=== PATIENT | male | born 1975 | race Caucasian/White ===

== ENCOUNTER 2016-12-10 15:58 | Emergency (ER) | payer MEDICAID, OTHER ==
[~2016-12-10] VITALS: Ht 154.9 cm; Wt 52.0 kg
[2016-12-10 16:00] VITALS: Ht 154.9 cm; Wt 52.0 kg
[2016-12-10] MEDS ORDERED: KETOROLAC 30 MG INJ IM STA (16:56)
[2016-12-10] MEDS ORDERED: DIAZEPAM 5 MG TAB PO ONE (17:00)
--- NOTE | 2016-12-10 17:55 | RADRPT ---
PROCEDURE: Lumbar spine series CLINICAL INDICATION: Pain status post fall TECHNIQUE: AP and lateral views COMPARISON: None available FINDINGS: The visualized spine alignment is normal. No acute fractures or traumatic subluxations are present. Preservation of vertebral body heights and disk spaces are noted to Normal mineralization is presen t. The bilateral pedicles and posterior elements are intact and well aligned. The bilateral sacroiliac joints are normal. IMPRESSION: 1. No acute fractures or traumatic subluxations. RPTAT: HDC .Yael Kulkarni MD, Date Time Electronically viewed and signed by .Yael Kulkarni MD, on 12/10/2016 17:54 .C/
[2016-12-10] MEDS ORDERED: NAPR-688 PO (18:18)
[2016-12-10] MEDS ORDERED: CYCL-319 PO (18:18)
--- NOTE | 2016-12-10 18:29 | ERD ---
ER Documentation Chief Complaint Date/Time DATE: 12/10/16 TIME: 18:26 Chief Complaint lower back pain s/p slip/fall HPI This is a 41-year-old male presenting with acute lower back pain status post a fall from a ladder at 6 feet. Patient states that he landed on his back, he states his pain is 4-5 out of 10, nonradiating described as achy and bruised. Patient states that he had no head injury, he denies any neuro deficits. He denies bladder or bowel incontinence. Denies saddle anesthesia ROS All systems reviewed and are negative except as per history of present illness. Medications Home Meds Active Scripts Cyclobenzaprine Hcl* (Cyclobenzaprine Hcl*) 10 Mg Tablet, 10 MG PO Q8 Y for MUSCLE SPASMS, #30 TAB Prov:RUPAL LOREZNO PA-C 12/10/16 Naproxen* (Naproxen*) 500 Mg Tablet, 500 MG PO BID Y for PAIN AND OR ELEVATED TEMP, #30 TAB Prov:RUPAL LORENZO PA-C 12/10/16 Reported Medications [None] No Conflict Check 11/15/10 Allergies Allergies: Coded Allergies: No Known Allergies (Verified Allergy, Mild, 09/05/12) PMhx/Soc History of Surgery: Yes (Hernia repair) Anesthesia Reaction: No Hx Neurological Disorder: No Hx Respiratory Disorders: No Hx Cardiac Disorders: No Hx Psychiatric Problems: No Hx Miscellaneous Medical Probl: No Hx Alcohol Use: No Hx Substance Use: No Hx Tobacco Use: No Smoking Status: Never smoker Physical Exam Vitals Vital Signs Date Time Temp Pulse Resp B/P Pulse Ox O2 Delivery O2 Flow Rate FiO2 12/10/16 16:00 97.8 80 18 163/88 96 Physical Exam GENERAL: WD/WN, in no apparent distress, non-toxic appearing HENT: NC/AT EYES: Conjunctiva normal NECK: Supple PULM: Normal labored breathing CV: Good capillary refill GI: Non-distended, no guarding BACK: no deformities noted, normal spinal curvature, TTP on lumbar region, non- tender on spine midline, bruising is noted in the right lumbar region EXT: No clubbing, cyanosis, or edema NEURO: Moves on all fours, sensation intact, normal gait SKIN: intact PSYCH: Normal mood Results 24 hrs Current Medications Medications (Trade) Dose Ordered Sig/Natalie Route PRN Reason Start Time Stop Time Status Last Admin Dose Admin Ketorolac Tromethamine (Toradol) 30 mg ONCE STAT IM 12/10/16 16:56 12/10/16 16:57 DC 12/10/16 17:42 Diazepam (Valium) 10 mg ONCE ONCE PO 12/10/16 17:00 12/10/16 17:01 DC 12/10/16 17:42 Procedures/MDM This is a 41-year-old male presenting with acute lower back pain status post a fall from a ladder at 6 feet. Likely due to contusion, sprain. There was no evidence of any fracture or traumatic subluxation. Patient has no neuro deficits. No evidence of vertebral fracture, cauda equina syndrome, spinal stenosis due to physical examination. In the ED patient was given Toradol for pain. X-ray of the lumbar region was done did not show any fractures or subluxations. Patient is neurovascularly intact. Prescriptions naproxen and Flexeril was given to patient, discussed to return to the ED if not improving as expected or follow-up with a primary care physician. Patient understood and agreed with this plan. Departure Diagnosis: Primary Impression: Injury of back Additional Impression: Back contusion Condition: Stable Patient Instructions: Back Sprain/Strain, Contusion, Back Additional Instructions: Visite a freed mdico maana para un EXAMEN.Regrese a estas instalaciones si no se mejora alexandre esperbamos o alexandre le dijimos. [place] toda la medicina maylin y alexandre se le indic. La medicina que se le recet puede causarle sueo.NO DEBE MANEJAR NI OPERAR MAQUINARIAS PELIGROSAS mientras esta tomando esta medicina! Regrese a estas instalaciones si no se mejora alexandre esperbamos o alexandre le dijimos. RUPAL LORENZO PA-C December 10, 2016 18:29
[2016-12-10 18:40] VITALS: BP 155/79; PULSE 70; RESP 17; TEMP 98
== END 2016-12-10 18:52 | disposition home or self-care (01) ==
LOC: FTE 15:58
DX: S30.0XXA Contusion of lower back and pelvis, initial encounter (principal); W11.XXXA Fall on and from ladder, initial encounter; Y92.9 Unspecified place or not applicable
CPT/HCPCS: 72100; 96372; J1885; Z7502; Z7610

== ENCOUNTER 2017-03-27 18:21 | Emergency (ER) | payer OTHER ==
[~2017-03-27] VITALS: Ht 154.9 cm; Wt 50.5 kg
[~2017-03-27 18:21] MED LIST: CYCL-319 PO; NAPR-688 PO
[2017-03-27 18:50] VITALS: Ht 154.9 cm; Wt 50.5 kg
[2017-03-27] MEDS ORDERED: KETOROLAC 30 MG INJ IM STA (20:58)
--- NOTE | 2017-03-27 22:10 | RADRPT ---
PROCEDURE: CT Lumbar Spine. CLINICAL INDICATION: Back pain, post fall TECHNIQUE: Continuous axial CT images were obtained. Sagittal and coronal reformations were creat ed from the raw axial data. The images were reviewed on a PACS workstation. The calculated radiatio n dose measures 201 mGy centimeters. The CTDI measures 7 mGy One or more of the following dose reduction techniques were used: Automated exposure control. Adjustment of the mA and/or kV according to patient size. Use of iterative reconstruction technique. COMPARISON: None available FINDINGS: There is normal alignment of the lumbar spine. There is no evidence of subluxation. Vertebral body h eights are preserved. Intervertebral disk spaces are maintained. No focal lytic or sclerotic lesion s are identified. No acute fractures identified. There is deformity of the sacrococcygeal junction region, which appea rs likely chronic. There is chronic deformity of the L2 and L3 transverse processes. T12-L1: There is no visualized gross disc abnormality. No bony central or neural foraminal stenosis is identified. L1-L2: There is no visualized gross disc abnormality. No bony central or neural foraminal stenosis is identified. L2-L3: There is no visualized gross disc abnormality. No bony central or neural foraminal stenosis is identified. L3-L4: There is no visualized gross disc abnormality. There is minimal bilateral facet hypertrophy. No bony central or neural foraminal stenosis is identified. L4-L5: There is no visualized gross disc abnormality. There is minimal bilateral facet hypertrophy. No bony central or neural foraminal stenosis is identified. L5-S1: There is a minimal broad-based disc protrusion. There is minimal bilateral facet hypertrophy. There is no central canal stenosis. There is no neural foraminal stenosis.. There is no abnormal paravertebral soft tissue mass. IMPRESSION: 1. No evidence for acute fracture or dislocation. Angulated deformity at the sacrococcygeal junctio n which appears chronic. 2. Minimal disc protrusion at L5-S1. Minimal facet hypertrophy through the lower lumbar spine. 3. No bony central canal or neural foraminal stenosis identified. RPTAT: HBST . .Abdifatah Dickerson MD, MD Date Time Electronically viewed and signed by .Abdifatah Dickerson MD, MD on 03/27/2017 22:10 .T/
[2017-03-28] MEDS ORDERED: ACET500C5 PO (02:07)
--- NOTE | 2017-03-28 02:11 | ERD ---
ER Documentation Chief Complaint Date/Time DATE: 03/28/17 TIME: 02:08 Chief Complaint Back pain x3 months. Injury from work HPI 42-year-old male patient with no significant past medical history presents to the ED complaining of lower back pain that started intermittently for 3 months. States that on December 10, 2016, he fell off a 6 foot ladder and injured his back and buttocks region. States that he feels like he has a bump on his lower back that he is concerned about. Describes the pain as pressure-like and rates it a 5 out of 10. States that he has been taking Flexeril with symptom improvement. Denies any saddle anesthesia, numbness or tingling, urinary retention, urine or bowel incontinence, nausea, vomiting, diarrhea, abdominal pain, chest pain, shortness of breath. ROS All systems reviewed and are negative except as per history of present illness. Medications Home Meds Active Scripts Acetaminophen* (Tylophen*) 500 Mg Capsule, 1 CAP PO Q6H Y for PAIN AND OR ELEVATED TEMP, #20 CAP Prov:AMAN UCRIEL PA-C 03/28/17 Cyclobenzaprine Hcl* (Cyclobenzaprine Hcl*) 10 Mg Tablet, 10 MG PO Q8 Y for MUSCLE SPASMS, #30 TAB Prov:RUPAL LORENZO PA-C 12/10/16 Naproxen* (Naproxen*) 500 Mg Tablet, 500 MG PO BID Y for PAIN AND OR ELEVATED TEMP, #30 TAB Prov:RUPAL LORENZO PA-C 12/10/16 Reported Medications [None] No Conflict Check 11/15/10 Allergies Allergies: Coded Allergies: No Known Allergies (Verified Allergy, Mild, 09/05/12) PMhx/Soc History of Surgery: Yes (Hernia repair) Anesthesia Reaction: No Hx Neurological Disorder: No Hx Respiratory Disorders: No Hx Cardiac Disorders: No Hx Psychiatric Problems: No Hx Miscellaneous Medical Probl: No Hx Alcohol Use: No Hx Substance Use: No Hx Tobacco Use: No Smoking Status: Never smoker Physical Exam Vitals Vital Signs Date Time Temp Pulse Resp B/P Pulse Ox O2 Delivery O2 Flow Rate FiO2 03/27/17 18:50 97.6 67 20 181/88 97 Physical Exam Const: [id number], well-nourished. In no acute distress. Head: Atraumatic, normocephalic Eyes: Normal Conjunctiva without injection. No purulent discharge. ENT: Normal external ear, nose. Moist oropharynx without tonsillar exudates. Non -erythematous pharynx. Uvula midline. No drooling. No trismus. Neck: No cervical midline tenderness. Full range of motion. No meningismus. No cervical lymphadenopathy. No JVD. Resp: Clear to auscultation bilaterally. No wheezing, rhonchi, rales, or crackles. No accessory muscle use. No retractions. Cardio: Regular rate and rhythm. No murmurs, rubs or gallops. Abd: Soft, nontender, non distended. Normal bowel sounds. No palpable masses. No rebound tenderness. No guarding. Negative McBurney's point. Negative psoas sign. Negative obturator sign. Skin: No petechiae or rashes Back: No midline tenderness. No CVA tenderness. Ext: No cyanosis, or edema. Neur: Awake and alert. Normal gait. Normal coordination. Psych: Normal Mood and Affect Results 24 hrs Current Medications Medications (Trade) Dose Ordered Sig/Natalie Route PRN Reason Start Time Stop Time Status Last Admin Dose Admin Ketorolac Tromethamine (Toradol) 30 mg ONCE STAT IM 03/27/17 20:58 03/27/17 21:00 DC 03/27/17 21:08 Procedures/MDM 50-year-old male patient with no significant past medical history presents to the ED complaining of chronic lower back pain due to a injury in November 2016 from a 6 foot fall from a ladder. Patient is afebrile and nontoxic-appearing. Patient has normal vital signs. A CT of the lumbar spine was ordered to further evaluate patient. Patient was given Toradol here in the ED with improvement of his symptoms. PROCEDURE: CT Lumbar Spine. CLINICAL INDICATION: Back pain, post fall TECHNIQUE: Continuous axial CT images were obtained. Sagittal and coronal reformations were created from the raw axial data. The images were reviewed on a PACS workstation. The calculated radiation dose measures 201 mGy centimeters. The CTDI measures 7 mGy One or more of the following dose reduction techniques were used: Automated exposure control. Adjustment of the mA and/or kV according to patient size. Use of iterative reconstruction technique. COMPARISON: None available FINDINGS: There is normal alignment of the lumbar spine. There is no evidence of subluxation. Vertebral body heights are preserved. Intervertebral disk spaces are maintained. No focal lytic or sclerotic lesions are identified. No acute fractures identified. There is deformity of the sacrococcygeal junction region, which appears likely chronic. There is chronic deformity of the L2 and L3 transverse processes. T12-L1: There is no visualized gross disc abnormality. No bony central or neural foraminal stenosis is identified. L1-L2: There is no visualized gross disc abnormality. No bony central or neural foraminal stenosis is identified. L2-L3: There is no visualized gross disc abnormality. No bony central or neural foraminal stenosis is identified. L3-L4: There is no visualized gross disc abnormality. There is minimal bilateral facet hypertrophy. No bony central or neural foraminal stenosis is identified. L4-L5: There is no visualized gross disc abnormality. There is minimal bilateral facet hypertrophy. No bony central or neural foraminal stenosis is identified. L5-S1: There is a minimal broad-based disc protrusion. There is minimal bilateral facet hypertrophy. There is no central canal stenosis. There is no neural foraminal stenosis.. There is no abnormal paravertebral soft tissue mass. IMPRESSION: 1. No evidence for acute fracture or dislocation. Angulated deformity at the sacrococcygeal junction which appears chronic. 2. Minimal disc protrusion at L5-S1. Minimal facet hypertrophy through the lower lumbar spine. 3. No bony central canal or neural foraminal stenosis identified. Patient likely has a back contusion from his fall in November 2016 causing his chronic back pain. Patient is ambulating here in the ED without difficulty. Denies saddle anesthesia, numbness or tingling, urine or bowel incontinence, weakness. Low suspicion for cauda equina syndrome, cord compression, nephrolithiasis, aortic aneurysm, aortic dissection, epidural abscess, spinal hematoma, malignancy, pyelonephritis, or other emergent conditions. Discharge medications: Tylenol Follow up with primary care physician in 1-2 days. Instructed patient to return to the ED sooner for any worsening symptoms. Patient's questions were answered. Patient understood and agreed with discharge plan. Patient discharged stable. Departure Diagnosis: Primary Impression: Back pain Back pain location: back pain in unspecified location Chronicity: unspecified Back pain laterality: midline Qualified Code: M54.89 - Midline back pain, unspecified back location, unspecified chronicity Condition: Stable Patient Instructions: Back Pain (Acute Or Chronic) Referrals: [facility] YOU HAVE RECEIVED A MEDICAL SCREENING EXAM AND THE RESULTS INDICATE THAT YOU DO NOT HAVE A CONDITION THAT REQUIRES URGENT TREATMENT IN THE EMERGENCY DEPARTMENT. FURTHER EVALUATION AND TREATMENT OF YOUR CONDITION CAN WAIT UNTIL YOU ARE SEEN IN YOUR DOCTORS OFFICE WITHIN THE NEXT 1-2 DAYS. IT IS YOUR RESPONSIBILITY TO MAKE AN APPOINTMENT FOR FOLOW-UP CARE. IF YOU HAVE A PRIMARY DOCTOR --you should call your primary doctor and schedule an appointment IF YOU DO NOT HAVE A PRIMARY DOCTOR YOU CAN CALL OUR PHYSICIAN REFERRAL HOTLINE AT IF YOU CAN NOT AFFORD TO SEE A PHYSICIAN YOU CAN CHOSE FROM THE FOLLOWING [facility] [address] [facility] [address] [facility] [facility] [address] [facility] [facility] [address] [facility]. [facility] [address] [facility] [facility] [address] [facility]. [facility] YOU HAVE RECEIVED A MEDICAL SCREENING EXAM AND THE RESULTS INDICATE THAT YOU DO NOT HAVE A CONDITION THAT REQUIRES URGENT TREATMENT IN THE EMERGENCY DEPARTMENT. FURTHER EVALUATION AND TREATMENT OF YOUR CONDITION CAN WAIT UNTIL YOU ARE SEEN IN YOUR DOCTORS OFFICE WITHIN THE NEXT 1-2 DAYS. IT IS YOUR RESPONSIBILITY TO MAKE AN APPOINTMENT FOR FOLOW-UP CARE. IF YOU HAVE A PRIMARY DOCTOR --you should call your primary doctor and schedule and appointment IF YOU DO NOT HAVE A PRIMARY DOCTOR YOU CAN CALL OUR PHYSICIAN REFERRAL HOTLINE AT . IF YOU CAN NOT AFFORD TO SEE A PHYSICIAN YOU CAN CHOSE FROM THE FOLLOWING [facility] INSTITUTIONS: [facility] [address] [place] [address] [facility] [address] [place] [address] [facility] + [facility] [address] [place] [address] [facility]RGENT [facility]/SPECIALTIES Additional Instructions: Llame al doctor MANDI y tarik lillian YARY PARA DENTRO DE 2-3 MUNOZ.Dgale a la secretaria que nosotros le instruimos hacer esta yary.Avise o llame si freed condicin se empeora antes de la yary. Regresa aqui si peor o no mejor. AMAN CURIEL PA-C Mar 28, 2017 02:11 AMAN CURIEL PA-C Mar 28, 2017 02:11
== END 2017-03-28 02:20 | disposition home or self-care (01) ==
LOC: FTE 18:21
DX: S39.92XA Unspecified injury of lower back, initial encounter (principal); W11.XXXA Fall on and from ladder, initial encounter; Y92.9 Unspecified place or not applicable
CPT/HCPCS: 72131; 96372; J1885; Z7502

== ENCOUNTER 2017-06-04 09:24 | Emergency (ER) | payer MEDICAID ==
[~2017-06-04] VITALS: Ht 154.9 cm; Wt 49.2 kg
[~2017-06-04 09:24] MED LIST changes: +ACET500C5 PO
[2017-06-04 09:26] VITALS: Ht 154.9 cm; Wt 49.2 kg
--- NOTE | 2017-06-04 10:24 | ERD ---
ER Documentation Chief Complaint Chief Complaint pt bib family with c/o back pain , s/p fall in November at work, chronic pain HPI 42-year-old male presents with a history of falling off a ladder in November 2016 at work, complaining of left-sided low back pain. The patient describes achy pain as diffuse in the left lateral aspect, it is nonradiating. He fell off approximately 8 feet off a ladder that slid off a roof. He had an x-ray done back in November that was normal. He does not complain of any saddle anesthesia loss of bowel bladder function or fevers or chills. Patient denies any history of drug abuse. ROS All systems reviewed and are negative except as per history of present illness. Medications Home Meds Active Scripts Hydrocodone/Acetaminophen (Merna 5-325 Tablet) 1 Each Tablet, 1 TAB PO Q6H Y for PAIN, #7 TAB Prov:SOPHY HANNAH PA-C 06/04/17 Ibuprofen* (Motrin*) 600 Mg Tab, 600 MG PO Q6, #30 TAB Prov:SOPHY HANNAH PA-C 06/04/17 Acetaminophen* (Tylophen*) 500 Mg Capsule, 1 CAP PO Q6H Y for PAIN AND OR ELEVATED TEMP, #20 CAP Prov:AMAN CURIEL PA-C 03/28/17 Cyclobenzaprine Hcl* (Cyclobenzaprine Hcl*) 10 Mg Tablet, 10 MG PO Q8 Y for MUSCLE SPASMS, #30 TAB Prov:RUPAL LORENZO PA-C 12/10/16 Naproxen* (Naproxen*) 500 Mg Tablet, 500 MG PO BID Y for PAIN AND OR ELEVATED TEMP, #30 TAB Prov:RUPAL LORENZO PA-C 12/10/16 Reported Medications [None] No Conflict Check 11/15/10 Allergies Allergies: Coded Allergies: No Known Allergies (Verified Allergy, Mild, 09/05/12) PMhx/Soc History of Surgery: Yes (Hernia repair) Anesthesia Reaction: No Hx Neurological Disorder: No Hx Respiratory Disorders: No Hx Cardiac Disorders: No Hx Psychiatric Problems: No Hx Miscellaneous Medical Probl: No Hx Alcohol Use: No Hx Substance Use: No Hx Tobacco Use: No Physical Exam Vitals Vital Signs Date Time Temp Pulse Resp B/P Pulse Ox O2 Delivery O2 Flow Rate FiO2 06/04/17 09:26 98.6 74 16 155/85 98 Physical Exam General: Well-developed, well-nourished. The patient appears in no acute distress. HEENT: Head is normocephalic, atraumatic. No scleral icterus. Neck: Supple. Nontender. Lungs: Clear to auscultation. Normal air movement. Heart: Regular rate and rhythm. S1 and S2 are normal. No murmurs, gallops, or rubs. Abdomen: Soft, nontender, nondistended. Bowel sounds are normoactive. Back: no midline tenderness or stepoffs, patient has paraspinal tenderness at L3 -L4 on the left side Extremities: No clubbing or cyanosis. Normal pulses. Moving extremities x 4. No weakness. Neurologic: Alert and oriented 3. No focal deficits. Skin: Normal turgor. No rash or lesions. 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 CLINICAL INDICATION: Low back pain, fall, injury in november TECHNIQUE: Axial CT images through the lumbar spine were performed. Images were obtained without IV contrast.. Sagittal and coronal reformations were created from the raw axial data. The images were reviewed on a PACS workstation. CTDI = 6.89 mGy DLP = 22 5.74 mGy-cm DICOM images are available One or more of the following dose reduction techniques were used: Automated exposure control Adjustment of the mA and / or kV according to patient size Use of iterative reconstruction technique. COMPARISON: Radiographs of the lumbar spine dated December 10, [address] of the lumbar spine dated March 27, 2017 FINDINGS: There is normal alignment of the lumbar spine. There is no evidence of subluxation. Vertebral body heights are preserved. Intervertebral disk spaces are maintained. No focal lytic or sclerotic lesions are identified. No acute fracture is identified. There is mild deformity of the sacrococcygeal junction region, which appears likely chronic. The paraspinal soft tissues appear grossly unremarkable. T12-L1: There is no visualized gross disc abnormality. No bony central or neural foraminal stenosis is identified. L1-L2: There is no visualized gross disc abnormality. No bony central or neural foraminal stenosis is identified. L2-L3: There is no visualized gross disc abnormality. No bony central or neural foraminal stenosis is identified. L3-L4: There is no visualized gross disc abnormality. There is minimal bilateral facet hypertrophy. No bony central or neural foraminal stenosis is identified. L4-L5: There is no visualized gross disc abnormality. There is minimal bilateral facet hypertrophy. No bony central or neural foraminal stenosis is identified. L5-S1: There is a minimal broad-based disc protrusion. There is minimal bilateral facet hypertrophy. There is no central canal stenosis. There is no neural foraminal stenosis.. IMPRESSION: 1. No CT evidence of acute fracture or subluxation. 2. Minimal disc protrusion at L5-S1 and minimal facet hypertrophy through the lower lumbar spine. 3. No bony central canal or neural foraminal stenosis identified. 4. No significant change from the previous CT. If there is persistent clinical concern, MRI may provide additional detail. RPTAT: UU .Jayesh Chavez MD, MD Date Time Electronically viewed and signed by .Jayesh Chavez MD, MD on 06/04/2017 10: 34 .K/ Procedures/MDM 42-year-old male comes in status post fall from November, coming in with low back pain, the patient's CT of the lumbar spine shows a disc herniation at L5 and S1. His symptoms are not consistent with cauda equina, and he does not have any radicular symptoms, motor loss, discitis, osteomyelitis, epidural abscess, epidural hematoma. He has had ongoing pain for several months, and will be given a short course of Merna and ibuprofen. The patient is appropriate for outpatient management. Departure Diagnosis: Primary Impression: Injury of back Additional Impression: Degenerative disc disease at L5-S1 level Condition: SOPHY Starr PA-C Jun 04, 2017 10:24
--- NOTE | 2017-06-04 10:35 | RADRPT ---
PROCEDURE: CT Lumbar Spine. CLINICAL INDICATION: Low back pain, fall, injury in november TECHNIQUE: Axial CT images through the lumbar spine were performed. Images were obtained without IV contrast.. Sagittal and coronal reformations were created from the raw axial data. The images were reviewed on a PACS workstation. CTDI = 6.89 mGy DLP = 22 5.74 mGy-cm DICOM images are available One or more of the following dose reduction techniques were used: Automated exposure control Adjustment of the mA and / or kV according to patient size Use of iterative reconstruction technique. COMPARISON: Radiographs of the lumbar spine dated December 10, [address] of the lumbar spine dated 2016 FINDINGS: There is normal alignment of the lumbar spine. There is no evidence of subluxation. Vertebral body h eights are preserved. Intervertebral disk spaces are maintained. No focal lytic or sclerotic lesions are identified. No acute fracture is identified. There is mild deformity of the sacrococcygeal junction region, whic h appears likely chronic. The paraspinal soft tissues appear grossly unremarkable. T12-L1: There is no visualized gross disc abnormality. No bony central or neural foraminal stenosis is identified. L1-L2: There is no visualized gross disc abnormality. No bony central or neural foraminal stenosis i s identified. L2-L3: There is no visualized gross disc abnormality. No bony central or neural foraminal stenosis i s identified. L3-L4: There is no visualized gross disc abnormality. There is minimal bilateral facet hypertrophy. No bony central or neural foraminal stenosis is identified. L4-L5: There is no visualized gross disc abnormality. There is minimal bilateral facet hypertrophy. No bony central or neural foraminal stenosis is identified. L5-S1: There is a minimal broad-based disc protrusion. There is minimal bilateral facet hypertrophy. There is no central canal stenosis. There is no neural foraminal stenosis.. IMPRESSION: 1. No CT evidence of acute fracture or subluxation. 2. Minimal disc protrusion at L5-S1 and minimal facet hypertrophy through the lower lumbar spine. 3. No bony central canal or neural foraminal stenosis identified. 4. No significant change from the previous CT. If there is persistent clinical concern, MRI may prov toñito additional detail. RPTAT: [facility] .Jayesh Chavez MD, MD Date Time Electronically viewed and signed by .Jayesh Chavez MD, MD on 06/04/2017 10:34 .K/
[2017-06-04] MEDS ORDERED: HYDR-906 PO (11:06)
[2017-06-04] MEDS ORDERED: IBUP-1542 PO (11:06)
== END 2017-06-04 11:25 | disposition home or self-care (01) ==
LOC: FTE 09:24
DX: S39.92XA Unspecified injury of lower back, initial encounter (principal); M51.37 Other intervertebral disc degeneration, lumbosacral region; W11.XXXA Fall on and from ladder, initial encounter; Y92.89 Other specified places as the place of occurrence of the external cause
CPT/HCPCS: 72131; Z7502